=== PATIENT | female | born 1990 | race Caucasian/White ===

== ENCOUNTER 2019-12-11 14:30 | Emergency (ER) | payer OTHER ==
[~2019-12-11] VITALS: Ht 157.5 cm; Wt 73.5 kg
[2019-12-11 14:39] VITALS: BP 125/72; Ht 157.5 cm; Wt 73.5 kg
[2019-12-11 15:02] LABS: BASOPHIL % 0.4 % (0-2); PLATELET COUNT 316 x10^3mcL (130-400)
[2019-12-11 15:03] LABS: RED CELL DISTRIBUTION WIDTH 14.7 % (11.5-14.5)
[2019-12-11 15:41] LABS: microscopic required? NO
[2019-12-11 15:46] LABS: UA SPECIFIC GRAVITY 1.015 (1.005-1.035); urine erythrocyte NEGATIVE (NEGATIVE)
== END 2019-12-11 16:22 | disposition home or self-care (01) ==
LOC: ED 14:30
PROVIDERS: Emergency Medicine
DX: O62.9 Abnormality of forces of labor, unspecified (principal); Z3A.01 Less than 8 weeks gestation of pregnancy